=== PATIENT | female | born 1950 | race African-American/Black ===

== ENCOUNTER 2018-04-07 09:05 | Inpatient (IN) ==
--- NOTE | 2018-04-07 09:42 | ED ---
HPI General Chief complaint: Weakness Stated complaint: rt arm numbness Time Seen by Provider: 04/07/18 09:29 Source: patient Mode of arrival: ambulatory Limitations: no limitations History of Present Illness HPI Narrative: Patient is a 67-year-old female with history of neurofibromatosis , presents the emergency room with weakness. Patient reports that for the past 3 days, her right arm and her right leg feel numb has been feeling weak. Patient reports that she was concerned that she had a stroke 3 days ago and was afraid to come to the hospital. Patient denies history of CVA in the past. Patient reports that she came to the emergency room today as her symptoms have not improved or worsened, they are just not getting any better. Patient currently is not taking any anticoagulants. Patient denies any headache or dizziness, denies any nausea or vomiting. Patient with no chest pain or shortness of breath. Patient with no other complaints at this time. Patient is a smoker, she smokes 1 pack of cigarettes every 2-3 days. Related Data Home Medications Medication Instructions Recorded Confirmed amitriptyline 100 mg PO DAILY 04/07/18 04/07/18 Allergies Allergy/AdvReac Type Severity Reaction Status Date / Time Sulfa (Sulfonamide Allergy Severe Hives Verified 04/07/18 09:36 Antibiotics) Review of Systems ROS: all other systems reviewed are negative [facility] Medical History Medical History Neurofibromatosis (Acute) Social History Social History Substance History: No History of Abuse Smoking Status: Current every day smoker Tobacco Type: Cigarettes How Often Do You Have a Drink Containing Alcohol: Never Recent Travel in [facility] within the Last 8 Weeks: No Recent Out of Country Travel within the Last 8 Weeks: No Immunization History Tetanus Immunization: <5 Years Exam Narrative Exam Narrative: GENERAL: Mild distress SKIN: Focused skin assessment warm/dry. HEAD: Atraumatic. Normocephalic. EYES: Pupils equal and round. No scleral icterus. No injection or drainage. ENT: No nasal bleeding or discharge. Mucous membranes pink and moist. NECK: Trachea midline. No JVD. CARDIOVASCULAR: Regular rate and rhythm. No murmur appreciated. RESPIRATORY: No accessory muscle use. Clear to auscultation. Breath sounds equal bilaterally. GASTROINTESTINAL: Abdomen soft, non-tender, nondistended. Hepatic and splenic margins not palpable. MUSCULOSKELETAL: No obvious deformities. No clubbing. No cyanosis. No edema. NEUROLOGICAL: Awake and alert. No obvious cranial nerve deficits. Motor grossly within normal limits. Normal speech. CN 2-12 grossly intact, patient unable to perform finger to nose exam to RUE - motor strength 5/5 to b/l upper and lower extremities PSYCHIATRIC: Appropriate mood and affect; insight and judgment normal. Course Initial Documented Vital Signs Temperature 98.4 F 04/07/18 09:07 Pulse Rate 111 H 04/07/18 09:07 Respiratory Rate 24 04/07/18 09:07 Blood Pressure 134/101 H 04/07/18 09:07 Pulse Oximetry 95 04/07/18 09:07 Last Documented Vital Signs Temperature 98.4 F 04/07/18 09:07 Pulse Rate 99 H 04/07/18 09:32 Respiratory Rate 18 04/07/18 09:32 Blood Pressure 159/104 H 04/07/18 09:32 Pulse Oximetry 97 04/07/18 09:32 Medical Decision Making MDM Narrative Medical decision making narrative: During the course of the patients emergency department visit, the patients history, examination, and differential diagnosis were reviewed with the patient. The patient was placed on a pvc monitor with oximetry and frequent blood pressure monitoring. The patient had an IV access obtained and blood work sent for analysis. The patient was initially provided IVF. The patients laboratory studies were reviewed Radiology studies were reviewed and remarkable for: ct head with probable subacute infarct to the basal ganglia on the left side I have ordered an aspirin for patient - she will need to be admitted for MRI/ CVA workup Case reviewed with Dr. Russell who accepts pt to service for CVA workup Medical Screen Exam Complete: Yes Emergency Medical Condition: Yes Differential Diagnosis Differential Diagnosis: cva, tia, ich, electrolyte abnormality Medical Records Medical records reviewed: Yes I reviewed the patient's medical records. Lab Data Lab results reviewed: Yes I reviewed the patient's lab results. Result diagrams: 04/07/18 09:35 04/07/18 09:35 Lab Results 04/07/18 04/07/18 04/07/18 Range/Units 09:35 09:35 09:35 WBC 6.8 (4.0-11.0) th/mm3 RBC 5.16 (4.00-5.30) mil/mm3 Hgb 16.5 H (11.6-15.3) gm/dL Hct 49.9 H (35.0-46.0) % MCV 96.8 (80.0-100.0) fL MCH 31.9 (27.0-34.0) pg MCHC 33.0 (32.0-36.0) % RDW 13.8 (11.6-17.2) % Plt Count 232 (150-450) th/mm3 MPV 8.1 (7.0-11.0) fL Neut % (Auto) 72.1 H (16.0-70.0) % Lymph % (Auto) 19.0 (9.0-44.0) % [place] % (Auto) 6.8 (0.0-8.0) % Eos % (Auto) 0.9 (0.0-4.0) % Baso % (Auto) 1.2 (0.0-2.0) % Neut # (Auto) 4.9 (1.8-7.7) th/mm3 Lymph # (Auto) 1.3 (1.0-4.8) th/mm3 [place] # (Auto) 0.5 (0.0-0.9) th/mm3 Eos # (Auto) 0.1 (0.0-0.4) th/mm3 Baso # (Auto) 0.1 (0.0-0.2) th/mm3 WBC Differential . Differential Comment Auto diff final PT 10.0 (9.8-11.6) sec INR 1.0 Ratio APTT 29.8 (23.4-31.7) sec Sodium 137 (136-145) meq/L Potassium 4.4 (3.5-5.1) meq/L Chloride 98 (98-107) meq/L Carbon Dioxide 34.4 H (21.0-32.0) meq/L Anion Gap 5 (5-15) meq/L BUN 12 (7-18) mg/dL Creatinine 0.75 (0.50-1.00) mg/dL Estimated GFR 78 L (>89) mL/min Random Glucose 130 H (74-106) mg/dL Calcium 9.3 (8.5-10.1) mg/dL Total Bilirubin 0.5 (0.2-1.0) mg/dL AST 16 (15-37) U/L ALT 19 (10-53) U/L Alkaline Phosphatase 79 (45-117) U/L Total Creatine Kinase 58 (26-192) U/L Troponin I Less than 0.02 L (0.02-0.05) ng/mL Total Protein 7.6 (6.4-8.2) g/dL Albumin 4.1 (3.4-5.0) g/dL Imaging Data Attestation: I personally reviewed and interpreted this imaging study as follows : Radiologist's impression: Chest X-Ray 04/07/18 09:37 CONCLUSION: Minimal parental changes right base new from comparison study Head CT 04/07/18 09:37 CONCLUSION: 1. Probable subacute infarct basal ganglia left side 2. MRI suggested. 3. Findings were discussed with Dr. Sahni on today's date . ECG Data EKG Prior to Arrival: No Attestation: I personally reviewed and interpreted this ECG as follows: Interpretation: EKG at 1019: NSR at 95bpm, qt/qtc: 357/410, no acute st or t wave changes Discharge Plan Discharge Disposition Patient Disposition: 30 Still Patient Discharge Condition Condition: Stable Discharge Details Diagnosis: Acute CVA (cerebrovascular accident) Physicians Team ED Provider: Joanna Sahni Primary Care Provider: John Sahu Rxs /Orders / Referrals /Forms Prescriptions: No Action amitriptyline 100 mg Tablet 100 mg PO DAILY RF: 0 Status ED Status: With Doctor
[2018-04-07 09:55] LABS: Baso # (Auto) 0.1 th/mm3 (0.0-0.2); Baso % (Auto) 1.2 % (0.0-2.0); Eos # (Auto) 0.1 th/mm3 (0.0-0.4); Eos % (Auto) 0.9 % (0.0-4.0); Hematocrit 49.9 % (35.0-46.0); Hemoglobin 16.5 gm/dL (11.6-15.3); Lymph # (Auto) 1.3 th/mm3 (1.0-4.8); Mean Corpuscular Hemoglobin 31.9 pg (27.0-34.0); Mean Corpuscular Volume 96.8 fL (80.0-100.0); Mean Platelet Volume 8.1 fL (7.0-11.0); Mono # (Auto) 0.5 th/mm3 (0.0-0.9); Mono % (Auto) 6.8 % (0.0-8.0); Neut # (Auto) 4.9 th/mm3 (1.8-7.7); Neut % (Auto) 72.1 % (16.0-70.0); Platelet Count 232 th/mm3 (150-450); Red Blood Count 5.16 mil/mm3 (4.00-5.30); Red Cell Distribution Width 13.8 % (11.6-17.2); White Blood Count 6.8 th/mm3 (4.0-11.0)
[2018-04-07 10:02] LABS: Activated Partial Thrombo Time 29.8 sec (23.4-31.7)
[2018-04-07 10:12] LABS: Albumin 4.1 g/dL (3.4-5.0); Anion Gap 5 meq/L (5-15); Aspartate Aminotransferase 16 U/L (15-37); Calcium 9.3 mg/dL (8.5-10.1); Carbon Dioxide 34.4 meq/L (21.0-32.0); Chloride 98 meq/L (98-107); Glomerular Filtration Rate 78 mL/min (>89); Glucose,Random 130 mg/dL (74-106); Potassium 4.4 meq/L (3.5-5.1); Sodium 137 meq/L (136-145)
[2018-04-07 10:15] LABS: Alanine Aminotransferase 19 U/L (10-53); Alkaline Phosphatase 79 U/L (45-117); Blood Urea Nitrogen 12 mg/dL (7-18); Total Protein 7.6 g/dL (6.4-8.2)
--- NOTE | 2018-04-07 10:16 | XR ---
EXAM DATE: 04/07/2018 10:12 AM EST AGE/SEX: 67 years / Female INDICATIONS: Stroke symptoms, slurred speech, weakness. CLINICAL DATA: This is the patient's initial encounter. Patient reports that signs and symptoms have been present for 2 days and indicates a pain score of 0/10. MEDICAL/SURGICAL HISTORY: . Scoliosis None. COMPARISON: [facility], XR CHEST PA AND LAT, 06/05/2014. . FINDINGS: Marked thoracolumbar scoliosis. Cardiomegaly without overt failure. Minimal parenchymal changes right base new from comparison study. Scoliosis does severely compromise the right lung. CONCLUSION: Minimal parental changes right base new from comparison study Electronically signed by: Juan David Reyes MD 04/07/2018 10:14 AM EST
--- NOTE | 2018-04-07 10:20 | CT ---
EXAM DATE: 04/07/2018 10:15 AM EST AGE/SEX: 67 years / Female INDICATIONS: Weakness. CLINICAL DATA: This is the patient's initial encounter. Patient reports that signs and symptoms have been present for 1 day and indicates a pain score of 9/10. MEDICAL/SURGICAL HISTORY: . Neurofibromatosis. None. RADIATION DOSE: 50.17 CTDI (mGy) COMPARISON: No prior exams available for comparison. TECHNIQUE: CT of the head without contrast. Using automated exposure control and adjustment of the mA and/or kV according to patient size, radiation dose was kept as low as reasonably achievable to ob tain optimal diagnostic quality images. DICOM format image data is available electronically for revi ew and comparison. FINDINGS: Cerebrum: There is decreased density basal ganglia left side including external capsule. Subacute, 1 -3 day old evolving infarct is suspected. Right hemisphere unremarkable. There is no parenchymal hemo rrhage There are no extra-axial fluid collections appreciated. Posterior fossa appears normal. CONCLUSION: 1. Probable subacute infarct basal ganglia left side 2. MRI suggested. 3. Findings were discussed with Dr. Sahni on today's date . Electronically signed by: Juan David Reyes MD 04/07/2018 10:19 AM EST
[2018-04-07 10:21] LABS: Creatine Kinase 58 U/L (26-192)
[2018-04-07] MEDS ORDERED: Aspirin 325 MG Tablet PO ONE (10:21)
[2018-04-07] MEDS ORDERED: Dextrose 50% in Water 50 ML Vial IV.PUSH PRN (10:57)
--- NOTE | 2018-04-07 11:31 | ECG ---
Date Performed: 04/07/2018 Time Performed: 10:19:34 PTAGE: 67 years EKG: Sinus rhythm LEFT ATRIAL ENLARGEMENT LOW QRS VOLTAGE IN PRECORDIAL LEADS POSSIBLE ANTERIOR MYOCARDIAL INFARCTION INFERIOR MYOCARDIAL INFARCTION ABNORMAL ECG NO PREVIOUS TRACING DOCTOR: Jovany Wren Interpretating Date/Time 04/07/2018 11:29:53
[2018-04-07] MEDS: Enoxaparin Inj 40 MG/0.4 ML Syringe SQ SCH (12:31)
[2018-04-07] MEDS: Sod Chloride 0.9% Inj 1,000 ML IV.CONT SCH (12:31)
[2018-04-07 13:13] LABS: Bacteria,Urine Occasional /hpf; Bilirubin,Urine Negative (Negative); Clarity,Urine Hazy (Clear); Color,Urine Yellow (Yellw/Straw); Glucose,Urine (UA) Negative (Negative); Hyaline Casts,Urine 1 /lpf (0-3); Leukocyte Esterase,Urine Trace (Negative); Mucus,Urine Few /lpf (Occasional); Nitrite,Urine Negative (Negative); Specific Gravity,Urine 1.005 (1.002-1.035); Squamous Epithelial Cell,Urine 7 /hpf (0-5)
--- NOTE | 2018-04-07 14:38 | MB ---
cc: Romero Son MD, PhD DATE: 04/07/2018 REASON FOR CONSULTATION: Stroke. HISTORY OF PRESENT ILLNESS: Ms. Justin is a 67-year-old female who has a history of neurofibromatosis who on Thursday developed acute onset of right-sided weakness involving the right arm and right leg with no speech involvement. The symptoms have persisted with no change. PAST MEDICAL HISTORY: She has a history of neurofibromatosis. MEDICATIONS AT HOME: She was on Elavil for neuropathic pain. She currently is on aspirin 325 mg daily but states she was not on that prior. She is on Pravachol 40 mg daily. NEUROLOGICAL EXAMINATION: VITAL SIGNS: Blood pressure is 169/102, pulse 97, respirations 19, temperature 97 degrees. NEUROLOGIC: High cortical functions normal. Cranial nerves are intact. On motor exam, she has mild weakness in the right arm and the right leg rated at 4/5 with normal strength on the left. She has diminished fine motor skills in the right hand. She has a mild pronator drift. Right upper extremity reflexes are symmetric. Sensory exam is intact. DIAGNOSTIC DATA: CT scan of the brain, probable subacute infarction in the left basal ganglia. Recommend MRI. EKG: Left atrial enlargement, sinus rhythm. LABORATORY DATA: White count 6800, hemoglobin 16.5, hematocrit 49.9%, platelets 232,000. PT is 10, INR 1, aPTT 29.8. Sodium is 137, potassium 4.4, chloride 98, CO2 of 34.4, BUN is 12, creatinine 0.75, GFR 78, glucose is 130, AST 16, ALT 19. IMPRESSION: Left hemisphere stroke in the basal ganglia. She does have an elevated hematocrit as well. RECOMMENDATION: Continue aspirin. We will obtain hematology consult regarding her elevated hemoglobin. Also recommend further evaluation with an MRI/MRA of the brain, carotid ultrasound, echocardiogram, lipid panel. Monitor cardiac telemetry, rule out atrial fibrillation. Also, consult rehabilitation medicine. Romero Son MD, PhD YELENA/tata , 02:02 PM , 02:07 PM
[2018-04-07] MEDS: Insulin NovoLOG Aspart Correctional Sugar Inj SQ SCH ×3 (15:29→23:55)
[2018-04-07 16:19] LABS: Chol/HDL Ratio 3.17 Ratio; HDL Cholesterol 67.4 mg/dL (40.0-60.0)
--- NOTE | 2018-04-07 16:47 | OTSOAPIP ---
TIME SESSION COMPLETED: 1540 TREATMENT TIME: 0 MINS. CHART REVIEWED. PATIENT WAS NOT AVAILABLE DUE TO HAVING A MRI PROCEDURE PLAN: WILL SEE NEXT TREATMENT DAY Therapist: Partah Sol Signature on file
--- NOTE | 2018-04-07 17:12 | MR ---
EXAM DATE: 04/07/2018 4:54 PM EST AGE/SEX: 67 years / Female INDICATIONS: CVA. Weakness right side. CLINICAL DATA: This is the patient's initial encounter. Patient reports that signs and symptoms have been present for 1 day and indicates a pain score of 0/10. MEDICAL/SURGICAL HISTORY: . Neurofibromatosis. . Tumors removed from spine 30 years ago. COMPARISON: [facility] [place], MRA HEAD W/O CONTRAST, 04/07/2018. . TECHNIQUE: Multiplanar, multisequence examination of the brain was performed without contrast. FINDINGS: There is an acute infarct in the left basal ganglia measuring up to 11 mm in diameter with an additio nal subcentimeter infarct in the left posterior periventricular white matter. There is no mass effect or midline shift. No hydrocephalus. Mild ischemic changes in the periventricular white matter. No sellar mass. CONCLUSION: 1. Acute small infarct in the left basal ganglia and left posterior periventricular white matter. No mass effect or shift. No hemorrhage. Mild white matter ischemic changes. Electronically signed by: Isaiah Tobias MD 04/07/2018 5:10 PM EST
--- NOTE | 2018-04-07 17:15 | MR ---
EXAM DATE: 04/07/2018 5:00 PM EST AGE/SEX: 67 years / Female INDICATIONS: CVA. Right sided weakness. CLINICAL DATA: This is the patient's initial encounter. Patient reports that signs and symptoms have been present for 2 days and indicates a pain score of 0/10. MEDICAL/SURGICAL HISTORY: . Neurofibromatosis. . Tumors removed from spine 30 years ago. COMPARISON: [facility] [place], [place] HEAD W/O CONTRAST, 04/07/2018. . TECHNIQUE: 3D [id number] MRA was performed. Source images, multiplanar STS MIP, and 3D volum e MIP reconstructions were reviewed. FINDINGS: There is excellent visualization of the major intracranial arteries out to the second-order branch ve ssels. There is no evidence for aneurysm, vessel truncation or stenosis, and no evidence for vascula r malformation. CONCLUSION: 1. Negative MRA Cow ([place]) non contrast. Electronically signed by: Isaiah Tobias MD 04/07/2018 5:14 PM EST
--- NOTE | 2018-04-07 17:24 | P.HPIM ---
History of Present Illness Primary Care Physician: John Sahu History of Present Illness: 67-year-old white female with a history of neurofibromatosis presents to the emergency room due to persistent right arm and leg numbness along with right hand legal aid weakness for the past 3 days as it has not improved. Patient states that she was at [facility] about 3 days ago and noted suddenly her right lower leg gave out on her she was able to recover and ambulate back home which then she noted that her legal aid strength and was diminished and was unable to hold a pen. She denies any headaches nor any visual changes nor any difficulty with swallowing. She was still able to ambulate independently however feels a heaviness in the right lower leg to the past 3 days. Based on the fact that the symptoms did not improve she came to emergency room today for evaluation. She denies a history of hypertension or diabetes. She has not had any associated chest pain, shortness of breath nor any nausea or vomiting. Diagnosis (1) Acute CVA (cerebrovascular accident): Inpatient Certification Inpatient Certification: I certify that the inpatient services were ordered in accordance with Medicare regulations governing the order. This includes certification that hospital inpatient services are reasonable and necessary and in the case of services not specified as inpatient-only under 42 CFR 419.22(n), that they are appropriately provided as inpatient services in accordance to with the 2-midnight benchmark under 43 CFR 412.3(e) Estimated Total Length of Stay (Days): 3 Plans for Post Hospital Care: Home [facility] Medical History Medical History Neurofibromatosis (Acute) Family History Family History Mother No problems noted. Father No problems noted. Other Lung cancer Social History Social History Substance History: No History of Abuse Smoking Status: Current every day smoker Tobacco Type: Cigarettes Packs Per Day: 0.5 Cigarettes Per Day: 10.0 How Often Do You Have a Drink Containing Alcohol: Never Recent Travel in [facility] within the Last 8 Weeks: No Recent Out of Country Travel within the Last 8 Weeks: No Immunization History Tetanus Immunization: <5 Years Hx Influenza Vaccine This Season: No Medications and Allergies Allergies Allergy/AdvReac Type Severity Reaction Status Date / Time Sulfa (Sulfonamide Allergy Severe Hives Verified 04/07/18 09:36 Antibiotics) Home Medications Medication Instructions Recorded Confirmed Type amitriptyline 100 mg PO DAILY 04/07/18 04/07/18 History Active Medications: Active Medications Aspirin (Aspirin) 325 mg PO DAILY FOR[facility]LY [facility], [facility]1983 Dextrose (D50w Vial) 50 ml IV.PUSH UNSCH PRN PRN Reason: PER HYPOGLYCEMIA PROTOCOL Enoxaparin Sodium (Lovenox Inj) 40 mg SQ Q24H FOR[facility], [facility]1983 Last Admin: 04/07/18 12:31 Dose: 40 mg Glucagon (Glucagon Inj) 1 mg OTHER UNSCH PRN PRN Reason: for Hypoglycemia Protocol Sodium Chloride (Ns Inj) 1,000 mls @ 70 mls/hr IV.CONT .[id number] FOR[facility]LY [facility], 1928–1983 Last Admin: 04/07/18 12:31 Dose: 70 mls/hr Insulin Aspart (Novolog Insulin Correctional Sugar Inj) 0 unit SQ ACHS FOR[facility]LY [facility], [facility]1983; Protocol Last Admin: 04/07/18 15:29 Dose: Not Given Pravastatin Sodium (Pravachol) 40 mg PO HS [facility], [facility]1983 Sodium Chloride (Ns Flush) 2 ml IV.FLUSH PRN PRN PRN Reason: FLUSH AFTER USING IV ACCESS Sodium Chloride (Ns Flush) 2 ml IV.FLUSH BID KVNG Sodium Chloride (Ns Flush) 2 ml IV.FLUSH PRN PRN PRN Reason: FLUSH AFTER USING IV ACCESS Physical Exam Vital signs: Last Vital Signs Temp 98.3 F 04/07/18 16:00 Pulse 97 H 04/07/18 16:00 Resp 18 04/07/18 16:00 BP 172/103 H 04/07/18 16:00 Pulse Ox 97 04/07/18 16:00 Intake & Output 04/05/18 04/06/18 04/07/18 04/08/18 06:59 06:59 06:59 06:59 Weight 38.555 kg Narrative: GENERAL: Thin white female in no acute distress SKIN: Warm and dry. Multiple elevated papules from neurofibromatosis bilateral arm trunk chest and upper lower extremities HEAD: Atraumatic. Normocephalic. EYES: Pupils equal and round. No scleral icterus. No injection or drainage. ENT: No nasal bleeding or discharge. Mucous membranes pink and moist. NECK: Trachea midline. No JVD. CARDIOVASCULAR: Regular rate and rhythm. Chest showed indented cisterna which is chronic RESPIRATORY: No accessory muscle use. Clear to auscultation. Breath sounds equal bilaterally. GASTROINTESTINAL: Abdomen soft, non-tender, nondistended. Hepatic and splenic margins not palpable. Normoactive bowel sounds MUSCULOSKELETAL: Extremities without clubbing, cyanosis, or edema. NEUROLOGICAL: Awake and alert. No obvious cranial nerve deficits. Motor grossly within normal limits. Five out of 5 muscle strength left upper and lower extremities slight diminished legal aid strength in the right upper hand, 4.5 out of 5 motor strength right lower extremity. Normal speech. PSYCHIATRIC: Appropriate mood and affect; insight and judgment normal. Assessment and Plan (1) Acute CVA (cerebrovascular accident): Code(s): I63.9 - Cerebral infarction, unspecified Status: Acute Plan 67-year-old white female presents to the emergency room with right sided numbness and weakness Subacute CVAaspirin initiated, will consult OT PT Neurology consultation for further recommendations. MRI of the brain, 2D echo , carotid ultrasound for further workup check fasting lipid profile and hemoglobin A1c. Elevated blood pressure - patient likely has underlying hypertension, start antihypertensives in the morning as we will continue permissive elevation during next 24 hours due to stroke. DVT prophylaxisLovenox
--- NOTE | 2018-04-07 18:02 | MR ---
EXAM DATE: 04/07/2018 5:42 PM EST AGE/SEX: 67 years / Female INDICATIONS: Stroke. Right sided weakness. CLINICAL DATA: This is the patient's initial encounter. Patient reports that signs and symptoms have been present for 1 day and indicates a pain score of 0/10. MEDICAL/SURGICAL HISTORY: . Neurofibromatosis. . Tumors removed from spine 30 years ago. COMPARISON: No prior exams available for comparison. TECHNIQUE: 10 ml Gadavist (gadobutrol) contrast infused MRA (single exam dose) of the extracranial circulation was performed using a neurovascular coil. Postprocessing was performed, including rotati ng sub-volume maximum intensity projections of each carotid artery, rotating full-volume maximum inte nsity projections of both carotid arteries, sagittal and coronal sliding thin-slab reformations of ea ch carotid artery, and left oblique sliding thin-slab reformation through the aortic arch to include the origin of the arch branch vessels. FINDINGS: Aortic Arch : There is a three-vessel origin of the great vessels from the aorta. No evidence of o stial narrowing. Right Carotid : The common carotid artery is intact. The carotid bulb has a normal configuration wi thout ulceration or narrowing. The internal carotid artery lumen is smooth without stenosis. The ex ternal carotid artery is intact. Left Carotid : The common carotid artery is intact. The carotid bulb has a normal configuration wit hout ulceration or narrowing. The internal carotid artery lumen is smooth without stenosis. The ext ernal carotid artery is intact. Vertebrals : The vertebral arteries have a symmetric diameter. No stenotic lesions are seen. CONCLUSION: 1. No hemodynamically significant stenosis identified on MRA of the neck. Percent stenosis is calculated using the diameter of the stenotic region over the diameter of the nor mal distal internal carotid artery Electronically signed by: Isaiah Tobias MD 04/07/2018 6:01 PM EST
[2018-04-07] MEDS ORDERED: Gadobutrol PF 10 MMOL/10 ML Vial (for RAD) IV.SIG ONE (18:03)
--- NOTE | 2018-04-07 18:03 | ECHRPT ---
Indication: CVA/TIA CONCLUSIONS Very technically difficult study. The left ventricular systolic function is grossly normal on limited imaging. Mild concentric left ventricular hypertrophy. BP: / HR: Rhythm: MEASUREMENTS (Male / Female) Normal Values Technical Quality:Very technically difficult study 2D ECHO LV Diastolic Diameter PLAX 2.8 cm 4.2 - 5.9 / 3.9 - 5.3 cm LV Systolic Diameter PLAX 2.0 cm IVS Diastolic Thickness 1.0 cm 0.6 - 1.0 / 0.6 - 0.9 cm LVPW Diastolic Thickness 1.0 cm 0.6 - 1.0 / 0.6 - 0.9 cm LV Relative Wall Thickness 0.7 RV Internal Dim ED PLAX 2.0 cm LVOT Diameter 1.8 cm Aortic Root Diameter 2.9 cm LA Systolic Diameter LX 3.2 cm 3.0 - 4.0 / 2.7 - 3.8 cm DOPPLER PV Peak Velocity 97.7 cm/s PV Peak Gradient 3.8 mmHg FINDINGS LEFT VENTRICLE Normal left ventricular size. Mild concentric left ventricular hypertrophy. The left ventricular systolic function is grossly normal on limited imaging. There was limited left ventricular wall motion assessment due to poor endocardial visualization. RIGHT VENTRICLE The right ventricle was not well visualized. LEFT ATRIUM The left atrial size is normal. RIGHT ATRIUM The right atrium is not well visualized. ATRIAL SEPTUM Normal atrial septal thickness. AORTA The aortic root and proximal ascending aorta are normal in size on limited imaging. MITRAL VALVE Structurally normal mitral valve. No mitral valve stenosis or regurgitation. AORTIC VALVE Trileaflet aortic valve. No aortic valve stenosis or regurgitation. TRICUSPID VALVE The tricuspid valve is not well visualized. PULMONARY VALVE The pulmonary valve is not well visualized. VESSELS The inferior vena cava is normal in size. PERICARDIUM There is a trace pericardial effusion present. Luther Jarquin DO (Electronically Signed) Final Date:07 April 2018 18:02
--- NOTE | 2018-04-07 19:31 | MB ---
cc: Sidney Henry MD DATE: 04/07/2018 REQUESTING PHYSICIAN: Romero Son MD REASON FOR CONSULTATION: High hemoglobin. A 67-year-old lady with history of neurofibromatosis, is admitted with new onset right-sided weakness. She was found to have CVA and started on aspirin and routine evaluation showed her hemoglobin and hematocrit to be mildly elevated to 16.5 and 49.9 respectively. Hence hematology consultation requested. The patient is asymptomatic now, has recovered from the stroke and does not have any new complaints. She is unaware of any history of polycythemia in the past and has not seen a resources representative and never had a bone marrow biopsy. She also did not have routine annual followups with her primary physician, and hence it is unclear when her last CBC was. REVIEW OF SYSTEMS: Denies any headaches, motor or sensory symptoms. No neck pain or stiffness or photophobia. No cough, chest pain or shortness of breath. No abdominal pain, distention, nausea or vomiting. No fevers, night sweats, or recent weight loss. PAST MEDICAL HISTORY: She had a neurofibromatosis and multiple joint and skeletal deformities. No known history of high blood pressure, heart, lung or kidney disease. FAMILY HISTORY: Significant for mother and father and a brother dying of lung cancer. They were all smokers. SOCIAL HISTORY: The patient smoked half pack a day for about 30 years and did not abuse alcohol. 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 CURRENT MEDICATIONS: Include: 1. Aspirin 325 mg daily. 2. Lovenox 40 mg subcutaneous every 24 hours. PHYSICAL EXAMINATION: GENERAL: Middle-aged lady, appearing much older and chronically ill looking, cachectic looking, but not in apparent distress. SKIN: With multiple neurofibromatosis. No pallor. Mild plethora. No icterus. No cyanosis. No clubbing. NECK: No lymphadenopathy in the neck or axilla or groins. HEENT: Without oropharyngeal lesions, no gum bleeding or hypertrophy. Alert and oriented x4, nonfocal. No JVD. CARDIOVASCULAR: S1, S2, regular rate and rhythm. LUNGS: Bilaterally clear without crackles or wheeze. ABDOMEN: Scaphoid, soft with no splenomegaly, No hepatomegaly, no masses or tenderness. No free fluid clinically. EXTREMITIES: No edema or evidence of DVTs. Pectus excavatum deformity noted. LABORATORY DATA: White count 6.8, hemoglobin is 16.5, hematocrit 49.9, MCV 96.8, platelets 232. Chemistry significant for BUN of 12, creatinine 0.75, GFR 78 and cholesterol 214, LDL 124, HDL 67, glucose 130. Liver enzymes normal. Calcium 9.3. Head CT was negative. MRA of the head was negative. MRI of the neck showed acute small infarct in the left basal ganglia and left periventricular white matter. No mass effect, shift or hemorrhage. Neck MRA showed no hemodynamically significant stenosis. IMPRESSION: A 67-year-old lady with a history of smoking, found to have a mild elevation of hemoglobin and hematocrit and a new onset cerebrovascular accident, currently on aspirin and neurology consultation ongoing. 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 She does not have any evidence of myeloproliferative disorder at this time. We will check her JAK2 mutation testing as well as MPL and check her erythropoietin levels. If there is elevation of erythropoietin, she will be checked for EPO producing tumor such as renal cell carcinoma, etc. Currently, there is no evidence of malignancy. I agree with her being on aspirin. If she appears to have a primary hematologic disorder on the basis of the above evaluation, I will order a bone marrow biopsy and we will consider hydroxyurea or Jakafi at that time. As far as her phlebotomy is concerned, we will currently hold it off as hematocrit is less than 50% and because it appears to be a secondary polycythemia. We will check her CBC in a.m. and follow her up. If she does have primary polycythemia, we will started her on phlebotomy also. All of these issues were the patient and her friend who is at the bedside. Sidney Henry MD MVA/ct , 06:38 PM , 06:49 PM
[2018-04-07] MEDS ORDERED: Acetaminophen 325 MG Tablet PO PRN (23:41)
[2018-04-08] MEDS: Sod Chloride 0.9% Inj 1,000 ML IV.CONT SCH ×2 (03:50→15:21)
[2018-04-08 06:12] LABS: Baso # (Auto) 0.1 th/mm3 (0.0-0.2); Baso % (Auto) 1.4 % (0.0-2.0); Eos # (Auto) 0.1 th/mm3 (0.0-0.4); Eos % (Auto) 1.2 % (0.0-4.0); Hematocrit 47.1 % (35.0-46.0); Hemoglobin 15.6 gm/dL (11.6-15.3); Lymph # (Auto) 1.5 th/mm3 (1.0-4.8); Lymph % (Auto) 26.8 % (9.0-44.0); Mean Corpuscular HGB Conc 33.1 % (32.0-36.0); Mean Corpuscular Hemoglobin 31.9 pg (27.0-34.0); Mean Corpuscular Volume 96.5 fL (80.0-100.0); Mean Platelet Volume 8.3 fL (7.0-11.0); Mono # (Auto) 0.5 th/mm3 (0.0-0.9); Mono % (Auto) 8.4 % (0.0-8.0); Neut # (Auto) 3.4 th/mm3 (1.8-7.7); Neut % (Auto) 62.2 % (16.0-70.0); Platelet Count 201 th/mm3 (150-450); Red Blood Count 4.88 mil/mm3 (4.00-5.30); Red Cell Distribution Width 13.5 % (11.6-17.2); White Blood Count 5.4 th/mm3 (4.0-11.0)
[2018-04-08 06:38] LABS: Chol/HDL Ratio 3.35 Ratio
[2018-04-08] MEDS: Insulin NovoLOG Aspart Correctional Sugar Inj SQ SCH ×4 (08:20→20:35)
[2018-04-08] MEDS: Aspirin 325 MG Tablet PO SCH (08:22)
--- NOTE | 2018-04-08 10:30 | P.CONREH ---
History of Present Illness Service: Physical medicine and rehabilitation Consult date: 04/08/18 Reason for Consult: Comprehensive rehabilitation evaluation Primary Care Provider: John Sahu History of Present Illness: Mehnaz Justin is a 67-year-old [id number] female admitted to [facility] 04/07/18 with right arm and leg numbness and decreased right pig sticker strength for approximately 3 days. Brain MRI 04/07/18 showed: Acute small infarct in left basal ganglia and left posterior periventricular white matter with no mass-effect or shift and no hemorrhage. Mild white matter ischemic changes noted. Neck MRA showed no hemodynamically significant stenosis. Patient was evaluated by neurology. Patient was to continue on aspirin and hematology was consulted regarding elevated hemoglobin. Patient was placed on cardiac telemetry to rule out atrial fibrillation. Review of Systems Constitutional: Denies headache(s) Eyes: Denies blurry vision, Denies double vision Ears, Nose, Mouth, and Throat: Denies abnormal hearing, Denies difficulty swallowing Cardiovascular: Denies chest pain Respiratory: Reports shortness of breath with activity, Denies shortness of breath Gastrointestinal: Denies abdominal pain, Denies nausea Genitourinary: Denies urinary incontinence Musculoskeletal: Reports muscle weakness (Right UE and LE) Skin/Breast: Denies itching, Denies rash Neurologic: Denies confusion Psychiatric: Denies confusion Hematologic/Lymphatic: Denies easy bruising Allergic/Immunologic: Denies throat swelling PMFSH - History History Provided By: Patient - Medical History Medical History: Medical History (Last Reviewed 04/08/18 @ 14:50 by Vilma Padron) Neurofibromatosis - Family History Family History: Family History (Last Reviewed 04/08/18 @ 12:38 by Laura Crouch) Mother No problems noted. Father No problems noted. Other Lung cancer - Tobacco History Tobacco Use In Past 30 Days: Yes Smoking Status: Current every day smoker Tobacco Type: Cigarettes Packs Per Day: 0.5 Cigarettes Per Day: 10.0 - Alcohol History How Often Do You Have a Drink Containing Alcohol: Never - Substance Use History Substance History: No History of Abuse - Travel History Recent Travel in the [facility] Within the Last 8 Weeks: No Recent Travel Out of the Country Within the Last 8 Weeks: No - Immunization History Tetanus Immunization: <5 Years Hx Influenza Vaccine This Season: No Medications and Allergies Active Medications: Active Medications Acetaminophen (Tylenol) 650 mg PO Q4H PRN PRN Reason: ARIZMENDI/fever > 100.4 Last Admin: 04/08/18 00:07 Dose: 650 mg Aspirin (Aspirin) 325 mg PO DAILY [facility] Last Admin: 04/08/18 08:22 Dose: 325 mg Dextrose (D50w Vial) 50 ml IV.PUSH UNSCH PRN PRN Reason: PER HYPOGLYCEMIA PROTOCOL Enoxaparin Sodium (Lovenox Inj) 40 mg SQ Q24H [facility] Last Admin: 04/07/18 12:31 Dose: 40 mg Glucagon (Glucagon Inj) 1 mg OTHER UNSCH PRN PRN Reason: for Hypoglycemia Protocol Sodium Chloride (Ns Inj) 1,000 mls @ 70 mls/hr IV.CONT .[id number] [facility] Last Admin: 04/08/18 03:50 Dose: 70 mls/hr Insulin Aspart (Novolog Insulin Correctional Sugar Inj) 0 unit SQ ACHS [facility]; Protocol Last Admin: 04/08/18 08:20 Dose: Not Given Pravastatin Sodium (Pravachol) 40 mg PO HS [facility] Last Admin: 04/07/18 23:00 Dose: 40 mg Sodium Chloride (Ns Flush) 2 ml IV.FLUSH PRN PRN PRN Reason: FLUSH AFTER USING IV ACCESS Sodium Chloride (Ns Flush) 2 ml IV.FLUSH BID [facility] Last Admin: 04/08/18 08:22 Dose: Not Given Sodium Chloride (Ns Flush) 2 ml IV.FLUSH PRN PRN PRN Reason: FLUSH AFTER USING IV ACCESS Allergies Allergy/AdvReac Type Severity Reaction Status Date / Time Sulfa (Sulfonamide Allergy Severe Hives Verified 04/07/18 09:36 Antibiotics) Home Medications Medication Instructions Recorded Confirmed Type amitriptyline 100 mg PO DAILY 04/07/18 04/07/18 History Exam - Physical Examination Vital Signs / I&O: Vital Signs 04/07/18 12:52 04/07/18 13:12 04/07/18 16:00 Temperature 97.8 F 98.3 F Pulse Rate 96 H 97 H 97 H Respiratory Rate 14 19 18 Blood Pressure 176/106 H 169/102 H 172/103 H Pulse Oximetry 96 95 97 04/07/18 20:00 04/08/18 00:00 04/08/18 04:00 Temperature 97.7 F 98.2 F 97.8 F Pulse Rate 100 H 93 H 97 H Respiratory Rate 17 17 17 Blood Pressure 135/72 161/98 H 145/92 H Pulse Oximetry 94 L 94 L 94 L 04/08/18 07:19 Temperature 97.7 F Pulse Rate 97 H Respiratory Rate 16 Blood Pressure 153/95 H Pulse Oximetry 91 L Intake & Output 04/07/18 04/08/18 04/08/18 18:59 06:59 18:59 Intake Total 720 / 720 1480 / 1480 Balance 720 / 720 1480 / 1480 Weight 38.555 kg Intake: IV 1000 / 1000 NS Inj 1,000 ML @ 70 mls/hr IV. 1000 / 1000 CONT .[id number] Rx#:[id number] Oral 720 / 720 480 / 480 Other: # Voids 2 Date of Last Bowel Movement 04/07/18 04/07/18 Intake & Output 04/06/18 04/07/18 04/08/18 04/09/18 06:59 06:59 06:59 06:59 Intake Total 2200 / 2200 Balance 2200 / 2200 Weight 38.555 kg General: No acute distress Respiratory: Lungs CTA, Non-labored respirations, BS equal, Coarse breath sounds Gastrointestinal: Positive bowel sounds, Non-distended, Non-tender Date of Last Bowel Movement: 04/07/18 Cardiovascular: Normal rate, No edema, Regular rhythm Skin: No rash Musculoskeletal: Swelling (None in distal LE) Psychiatric: Cooperative, Appropriate mood & affect - Neurologic Orientation: oriented to: Self, Place, Situation Neurologic: Cranial nerves (Intact 2-12), Speech (Clear), Neglect (None noted) Motor: Right Upper Extremity (4+/5), Left Upper Extremity (5/5), Right Lower Extremity (4+/5), Left Lower Extremity (5/5) Spasticity: None noted Sensory: Intact to light touch in UE and LE and symmetric DTRs: Normal Babinski: Negative Clonus: Negative Results - Labs CBC & Chem 7: 04/08/18 05:32 04/07/18 09:35 Labs: Laboratory Results - last 24 hr 04/07/18 04/07/18 04/07/18 09:35 12:45 17:55 WBC RBC Hgb Hct MCV MCH MCHC RDW Plt Count MPV Neut % (Auto) Lymph % (Auto) [place] % (Auto) Eos % (Auto) Baso % (Auto) Neut # (Auto) Lymph # (Auto) [place] # (Auto) Eos # (Auto) Baso # (Auto) WBC Differential Differential Comment POC Glucose 79 Triglycerides 112 Cholesterol 214 H LDL Cholesterol, Calc 124 H HDL Cholesterol 67.4 H Cholesterol/HDL Ratio 3.17 Urine Color Yellow Urine Clarity Hazy H Urine pH 7.0 Ur Specific [place] 1.005 Urine Protein Negative Urine Glucose (UA) Negative Urine Ketones Negative Urine Occult Blood Negative Urine Nitrate Negative Urine Bilirubin Negative Urine Urobilinogen Less than 2 Ur Leukocyte Esterase Trace H Urine RBC 1 Urine WBC 1 Ur Squamous Epith Cells 7 Urine Bacteria Occasional H Hyaline Casts 1 Urine Mucus Few H Micro UA Comment Culture not ind Ur Microscopic Review Not Reportable Urine Culture Comments Culture not ind 04/07/18 04/08/18 04/08/18 23:02 05:32 05:32 WBC 5.4 RBC 4.88 Hgb 15.6 H Hct 47.1 H MCV 96.5 MCH 31.9 MCHC 33.1 RDW 13.5 Plt Count 201 MPV 8.3 Neut % (Auto) 62.2 Lymph % (Auto) 26.8 [place] % (Auto) 8.4 H Eos % (Auto) 1.2 Baso % (Auto) 1.4 Neut # (Auto) 3.4 Lymph # (Auto) 1.5 [place] # (Auto) 0.5 Eos # (Auto) 0.1 Baso # (Auto) 0.1 WBC Differential . Differential Comment Auto diff final POC Glucose 76 Triglycerides 113 Cholesterol 191 LDL Cholesterol, Calc 111 H HDL Cholesterol 57.0 Cholesterol/HDL Ratio 3.35 Urine Color Urine Clarity Urine pH Ur Specific [place] Urine Protein Urine Glucose (UA) Urine Ketones Urine Occult Blood Urine Nitrate Urine Bilirubin Urine Urobilinogen Ur Leukocyte Esterase Urine RBC Urine WBC Ur Squamous Epith Cells Urine Bacteria Hyaline Casts Urine Mucus Micro UA Comment Ur Microscopic Review Urine Culture Comments 04/08/18 07:24 WBC RBC Hgb Hct MCV MCH MCHC RDW Plt Count MPV Neut % (Auto) Lymph % (Auto) [place] % (Auto) Eos % (Auto) Baso % (Auto) Neut # (Auto) Lymph # (Auto) [place] # (Auto) Eos # (Auto) Baso # (Auto) WBC Differential Differential Comment POC Glucose 93 Triglycerides Cholesterol LDL Cholesterol, Calc HDL Cholesterol Cholesterol/HDL Ratio Urine Color Urine Clarity Urine pH Ur Specific [place] Urine Protein Urine Glucose (UA) Urine Ketones Urine Occult Blood Urine Nitrate Urine Bilirubin Urine Urobilinogen Ur Leukocyte Esterase Urine RBC Urine WBC Ur Squamous Epith Cells Urine Bacteria Hyaline Casts Urine Mucus Micro UA Comment Ur Microscopic Review Urine Culture Comments - Imaging Impressions Head MRA 04/07/18 00:00 CONCLUSION: 1. Negative MRA [place] ([place]) non contrast. Head MRI 04/07/18 10:59 CONCLUSION: 1. Acute small infarct in the left basal ganglia and left posterior periventricular white matter. No mass effect or shift. No hemorrhage. Mild white matter ischemic changes. Neck MRA 04/07/18 10:59 CONCLUSION: 1. No hemodynamically significant stenosis identified on MRA of the neck. Percent stenosis is calculated using the diameter of the stenotic region over the diameter of the normal distal internal carotid artery Assessment and Plan - Plan Assessment: 1. Left Basal Ganglia infarct with mild right hemiparesis and decreased coordination Recommendations: 1. PT mobilizing and independent with transfers and gait 100 feet. Continue to mobilize addressing balance 2. OT evaluating for right UE strengthening and coordination and ADL training 3. Encouraged tobacco cessation 4. Case management for discharge planning. Patient stated that she lives alone and likely will need home health services 5. Will follow while hospitalized and at discharge Thank you for this consult.
[2018-04-08] MEDS: Enoxaparin Inj 40 MG/0.4 ML Syringe SQ SCH (11:16)
--- NOTE | 2018-04-08 14:03 | P.PN ---
Subjective Interval history: feels great no complains of headache, nausea or vomiting preented with right seided weakness started - Thursday but did not come to ER till yesterday clinically feels stronger baseline is independent did very well with PT today Physical Exam Vital signs: Vital Signs 04/07/18 16:00 04/07/18 20:00 04/08/18 00:00 Temperature 98.3 F 97.7 F 98.2 F Pulse Rate 97 H 100 H 93 H Respiratory Rate 18 17 17 Blood Pressure 172/103 H 135/72 161/98 H Pulse Oximetry 97 94 L 94 L 04/08/18 04:00 04/08/18 07:19 04/08/18 11:16 Temperature 97.8 F 97.7 F 97.9 F Pulse Rate 97 H 97 H 90 Respiratory Rate 17 16 16 Blood Pressure 145/92 H 153/95 H 149/81 H Pulse Oximetry 94 L 91 L Intake & Output 04/07/18 04/08/18 04/08/18 18:59 06:59 18:59 Intake Total 720 / 720 1480 / 1480 Balance 720 / 720 1480 / 1480 Weight 38.555 kg Intake: IV 1000 / 1000 NS Inj 1,000 ML @ 70 mls/hr IV. 1000 / 1000 CONT .[id number] Rx#:[id number] Oral 720 / 720 480 / 480 Other: # Voids 2 Date of Last Bowel Movement 04/07/18 04/07/18 Narrative: GENERAL: Thin white female in no acute distress SKIN: Warm and dry. Multiple elevated papules from neurofibromatosis bilateral arm trunk chest and upper lower extremities HEAD: Atraumatic. Normocephalic. EYES: Pupils equal and round. No scleral icterus. No injection or drainage. ENT: No nasal bleeding or discharge. Mucous membranes pink and moist. NECK: Trachea midline. No JVD. CARDIOVASCULAR: Regular rate and rhythm. RESPIRATORY: No accessory muscle use. Clear to auscultation. Breath sounds equal bilaterally. GASTROINTESTINAL: Abdomen soft, non-tender, nondistended. Hepatic and splenic margins not palpable. Normoactive bowel sounds MUSCULOSKELETAL: Extremities without clubbing, cyanosis, or edema. NEUROLOGICAL: Awake and alert. No obvious cranial nerve deficits. Motor grossly within normal limits. Five out of 5 muscle strength left \ PSYCHIATRIC: Appropriate mood and affect; insight and judgment normal. very interactive Results - Labs CBC & Chem 7: 04/08/18 05:32 04/07/18 09:35 Laboratory Results - last 24 hr 04/07/18 04/07/18 04/07/18 09:35 17:55 23:02 WBC RBC Hgb Hct MCV MCH MCHC RDW Plt Count MPV Neut % (Auto) Lymph % (Auto) [place] % (Auto) Eos % (Auto) Baso % (Auto) Neut # (Auto) Lymph # (Auto) [place] # (Auto) Eos # (Auto) Baso # (Auto) WBC Differential Differential Comment POC Glucose 79 76 Triglycerides 112 Cholesterol 214 H LDL Cholesterol, Calc 124 H HDL Cholesterol 67.4 H Cholesterol/HDL Ratio 3.17 04/08/18 04/08/18 04/08/18 05:32 05:32 07:24 WBC 5.4 RBC 4.88 Hgb 15.6 H Hct 47.1 H MCV 96.5 MCH 31.9 MCHC 33.1 RDW 13.5 Plt Count 201 MPV 8.3 Neut % (Auto) 62.2 Lymph % (Auto) 26.8 [place] % (Auto) 8.4 H Eos % (Auto) 1.2 Baso % (Auto) 1.4 Neut # (Auto) 3.4 Lymph # (Auto) 1.5 [place] # (Auto) 0.5 Eos # (Auto) 0.1 Baso # (Auto) 0.1 WBC Differential . Differential Comment Auto diff final POC Glucose 93 Triglycerides 113 Cholesterol 191 LDL Cholesterol, Calc 111 H HDL Cholesterol 57.0 Cholesterol/HDL Ratio 3.35 04/08/18 11:16 WBC RBC Hgb Hct MCV MCH MCHC RDW Plt Count MPV Neut % (Auto) Lymph % (Auto) [place] % (Auto) Eos % (Auto) Baso % (Auto) Neut # (Auto) Lymph # (Auto) [place] # (Auto) Eos # (Auto) Baso # (Auto) WBC Differential Differential Comment POC Glucose 72 Triglycerides Cholesterol LDL Cholesterol, Calc HDL Cholesterol Cholesterol/HDL Ratio - Imaging Impressions Head MRA 04/07/18 00:00 CONCLUSION: 1. Negative MRA [place] ([place]) non contrast. Head MRI 04/07/18 10:59 CONCLUSION: 1. Acute small infarct in the left basal ganglia and left posterior periventricular white matter. No mass effect or shift. No hemorrhage. Mild white matter ischemic changes. Neck MRA 04/07/18 10:59 CONCLUSION: 1. No hemodynamically significant stenosis identified on MRA of the neck. Percent stenosis is calculated using the diameter of the stenotic region over the diameter of the normal distal internal carotid artery Assessment and Plan - Assessment (1) Acute CVA (cerebrovascular accident) Code(s): I63.9 - Cerebral infarction, unspecified Status: Acute - Plan 67-year-old white right handed female baseline very independent=- history of neurofibromatosis- ff by Dr. Son as OP presenting with right sided weakness that started Thursday - Acute Left BG infarct - symptoms started Thursday- neurologically looks well - ASA OT PT daily Neurology ff . HYpertension - start on Amlodipine 2.5 mg daily HYperlipidemia - started on statins 40 mg hs Polycythemia- likely secondary to chronic smoking - smoker 1 ppday every 2 days- stop since thursday - hematology ff - work up in progress r/o PV DVT prophylaxisLovenox DC planning
[2018-04-08] MEDS: amLODIPine 5 MG Tablet PO SCH (14:40)
[2018-04-08 16:30] LABS: Hemoglobin A1c 5.5 % (4.3-6.0)
--- NOTE | 2018-04-08 20:52 | P.PNNEU ---
Subjective Subjective Comments: Pt feels right sided weakness is improving Active Medications: Active Medications Acetaminophen (Tylenol) 650 mg PO Q4H PRN PRN Reason: ARIZMENDI/fever > 100.4 Last Admin: 04/08/18 00:07 Dose: 650 mg Amitriptyline HCl (Elavil) 100 mg PO [facility] Amlodipine Besylate (Norvasc) 2.5 mg PO DAILY [facility] Last Admin: 04/08/18 14:40 Dose: 2.5 mg Aspirin (Aspirin) 325 mg PO DAILY [facility] Last Admin: 04/08/18 08:22 Dose: 325 mg Dextrose (D50w Vial) 50 ml IV.PUSH UNSCH PRN PRN Reason: PER HYPOGLYCEMIA PROTOCOL Enoxaparin Sodium (Lovenox Inj) 40 mg SQ Q24H [facility] Last Admin: 04/08/18 11:16 Dose: 40 mg Glucagon (Glucagon Inj) 1 mg OTHER UNSCH PRN PRN Reason: for Hypoglycemia Protocol Sodium Chloride (Ns Inj) 1,000 mls @ 70 mls/hr IV.CONT .[id number] [facility] Last Admin: 04/08/18 15:21 Dose: 70 mls/hr Insulin Aspart (Novolog Insulin Correctional Sugar Inj) 0 unit SQ [facility]; Protocol Last Admin: 04/08/18 20:35 Dose: Not Given Miscellaneous (Pill Splitter) 1 each [facility] Pravastatin Sodium (Pravachol) 40 mg PO [facility] Last Admin: 04/08/18 20:32 Dose: 40 mg Sodium Chloride (Ns Flush) 2 ml IV.FLUSH PRN PRN PRN Reason: FLUSH AFTER USING IV ACCESS Sodium Chloride (Ns Flush) 2 ml IV.FLUSH BID [facility] Last Admin: 04/08/18 20:35 Dose: Not Given Sodium Chloride (Ns Flush) 2 ml IV.FLUSH PRN PRN PRN Reason: FLUSH AFTER USING IV ACCESS Allergies/Adverse Reactions: Allergies Allergy/AdvReac Type Severity Reaction Status Date / Time Sulfa (Sulfonamide Allergy Severe Hives Verified 04/07/18 09:36 Antibiotics) Physical Exam Vital signs: Vital Signs 04/08/18 00:00 04/08/18 04:00 04/08/18 07:19 Temperature 98.2 F 97.8 F 97.7 F Pulse Rate 93 H 97 H 97 H Respiratory Rate 17 17 16 Blood Pressure 161/98 H 145/92 H 153/95 H Pulse Oximetry 94 L 94 L 91 L 04/08/18 11:16 04/08/18 16:00 Temperature 97.9 F 98.0 F Pulse Rate 90 92 H Respiratory Rate 16 15 Blood Pressure 149/81 H 158/98 H Pulse Oximetry 97 Intake & Output 04/08/18 04/08/18 04/09/18 06:59 18:59 06:59 Intake Total 1480 / 1480 1900 / 1900 Balance 1480 / 1480 1900 / 1900 Intake: IV 1000 / 1000 1000 / 1000 NS Inj 1,000 ML @ 70 mls/hr IV. 1000 / 1000 1000 / 1000 CONT .[id number] Rx#:[id number] Oral 480 / 480 900 / 900 Other: # Voids 2 5 Date of Last Bowel Movement 04/07/18 # Bowel Movements 1 - Routine Neurological Exam alert, speech normal'CN intact MOTOR 4+/5 RUE and RLE Objective Radiology Results: MRI --left basal ganglia cva MRA carotids---no significant stenosis ECHO no embolic source identified Laboratory Results - last 24 hr 04/07/18 04/08/18 04/08/18 23:02 05:32 05:32 WBC RBC Hgb Hct MCV MCH MCHC RDW Plt Count MPV Neut % (Auto) Lymph % (Auto) [place] % (Auto) Eos % (Auto) Baso % (Auto) Neut # (Auto) Lymph # (Auto) [place] # (Auto) Eos # (Auto) Baso # (Auto) WBC Differential Differential Comment POC Glucose 76 Hemoglobin A1c 5.5 Triglycerides 113 Cholesterol 191 LDL Cholesterol, Calc 111 H HDL Cholesterol 57.0 Cholesterol/HDL Ratio 3.35 04/08/18 04/08/18 04/08/18 05:32 07:24 11:16 WBC 5.4 RBC 4.88 Hgb 15.6 H Hct 47.1 H MCV 96.5 MCH 31.9 MCHC 33.1 RDW 13.5 Plt Count 201 MPV 8.3 Neut % (Auto) 62.2 Lymph % (Auto) 26.8 [place] % (Auto) 8.4 H Eos % (Auto) 1.2 Baso % (Auto) 1.4 Neut # (Auto) 3.4 Lymph # (Auto) 1.5 [place] # (Auto) 0.5 Eos # (Auto) 0.1 Baso # (Auto) 0.1 WBC Differential . Differential Comment Auto diff final POC Glucose 93 72 Hemoglobin A1c Triglycerides Cholesterol LDL Cholesterol, Calc HDL Cholesterol Cholesterol/HDL Ratio 04/08/18 04/08/18 16:24 20:34 WBC RBC Hgb Hct MCV MCH MCHC RDW Plt Count MPV Neut % (Auto) Lymph % (Auto) [place] % (Auto) Eos % (Auto) Baso % (Auto) Neut # (Auto) Lymph # (Auto) [place] # (Auto) Eos # (Auto) Baso # (Auto) WBC Differential Differential Comment POC Glucose 76 78 Hemoglobin A1c Triglycerides Cholesterol LDL Cholesterol, Calc HDL Cholesterol Cholesterol/HDL Ratio Review/Management - Review/Management Plan: continue asa and statin PT/OT recommend cardiology evaluation as outpatient for [facility] monitor to r /o afib.
[2018-04-08] MEDS: Amitriptyline 100 MG Tablet PO SCH (23:28)
[2018-04-09] MEDS: Insulin NovoLOG Aspart Correctional Sugar Inj SQ SCH ×4 (08:00→20:34)
[2018-04-09] MEDS: Aspirin 325 MG Tablet PO SCH (08:28)
[2018-04-09] MEDS: amLODIPine 5 MG Tablet PO SCH (08:28)
[2018-04-09] MEDS: Sod Chloride 0.9% Inj 1,000 ML IV.CONT SCH ×2 (10:10→20:31)
[2018-04-09] MEDS: Enoxaparin Inj 40 MG/0.4 ML Syringe SQ SCH (12:36)
--- NOTE | 2018-04-09 13:48 | P.PN ---
Subjective Interval history: up and ambualted with PT did very well no complains of headaches, nausea or vomitjng or weakness seen by quarryman- Hct 47- ordered for phlebotomy with repeat CBC in am Physical Exam Vital signs: Vital Signs 04/08/18 16:00 04/08/18 20:00 04/09/18 00:00 Temperature 98.0 F 98.2 F 98.1 F Pulse Rate 92 H 90 93 H Respiratory Rate 15 18 16 Blood Pressure 158/98 H 133/89 135/93 H Pulse Oximetry 97 94 L 89 L 04/09/18 04:00 04/09/18 07:12 04/09/18 10:00 Temperature 97.2 F L 97.7 F Pulse Rate 89 95 H 68 Respiratory Rate 15 16 Blood Pressure 158/95 H 161/92 H Pulse Oximetry 93 L 93 L 04/09/18 11:31 Temperature 97.9 F Pulse Rate 100 H Respiratory Rate 17 Blood Pressure 113/77 Pulse Oximetry Intake & Output 04/08/18 04/09/18 04/09/18 18:59 06:59 18:59 Intake Total 1900 / 1900 1240 / 1240 Balance 1900 / 1900 1240 / 1240 Weight 36.2 kg Intake: IV 1000 / 1000 1000 / 1000 NS Inj 1,000 ML @ 70 mls/hr IV. 1000 / 1000 1000 / 1000 CONT .[id number] Rx#:[id number] Oral 900 / 900 240 / 240 Other: # Voids 5 3 Date of Last Bowel Movement 04/07/18 04/07/18 # Bowel Movements 1 Narrative: in no acute distress SKIN: Warm and dry. Multiple elevated papules from neurofibromatosis bilateral arm trunk chest and upper lower extremities HEAD: Atraumatic. Normocephalic. EYES: Pupils equal and round. No scleral icterus. No injection or drainage. ENT: No nasal bleeding or discharge. Mucous membranes pink and moist. NECK: Trachea midline. No JVD. CARDIOVASCULAR: Regular rate and rhythm. RESPIRATORY: No accessory muscle use. Clear to auscultation. Breath sounds equal bilaterally. GASTROINTESTINAL: Abdomen soft, non-tender, nondistended. Hepatic and splenic margins not palpable. Normoactive bowel sounds MUSCULOSKELETAL: Extremities without clubbing, cyanosis, or edema. NEUROLOGICAL: Awake and alert. No obvious cranial nerve deficits. Motor grossly within normal limits. Five out of 5 muscle strength left \ Appropriate mood and affect; insight and judgment normal. very interactive Results - Labs CBC & Chem 7: 04/08/18 05:32 04/07/18 09:35 Laboratory Results - last 24 hr 04/08/18 04/08/18 04/08/18 05:32 16:24 20:34 POC Glucose 76 78 Hemoglobin A1c 5.5 04/09/18 12:38 POC Glucose 112 H Hemoglobin A1c Assessment and Plan - Assessment (1) Acute CVA (cerebrovascular accident) Code(s): I63.9 - Cerebral infarction, unspecified Status: Acute - Plan 67-year-old white right handed female baseline very independent=- history of neurofibromatosis- ff by Dr. Son as OP presenting with right sided weakness that started Thursday - Acute Left BG infarct - symptoms started Thursday- neurologically looks well - ASA OT PT daily Neurology ff . HYpertension - started on Amlodipine 2.5 mg daily HYperlipidemia - started on statins 40 mg hs Polycythemia- - evaluated by hematology- ordered for phelbotomy today 500 cc. CBC in am - smoker 1 ppday every 2 days- stop since thursday - hematology ff - work up in progress r/o PV DVT prophylaxisLovenox DC planning CM consult for home health care visits- nursing/PT
--- NOTE | 2018-04-09 13:49 | P.DCO ---
- Diagnosis (1) Acute CVA (cerebrovascular accident) Status: Acute - Physical Therapy Order: Evaluate and treat, Improve ambulation - Occupational Therapy Order: Evaluate and treat - Speech Therapy Order: To improve: Speech and communication skills - Home Health Nursing Order: Medical education, Signs/symptoms of disease process, Nursing assessment with vital signs - Case Management Consult Case Management Consult-Home Health: Yes - Certification I have seen patient Mehnaz Justin on 04/09/18. My clinical findings support the need for the requested home health care services because: Need for psychosocial assistance, High risk of falls I certify that my clinical findings support that this patient is homebound because: Need for psychosocial assistance
[2018-04-09 18:02] VITALS: RESP 18
--- NOTE | 2018-04-09 19:36 | P.PNNEU ---
Subjective Subjective Comments: Pt reports strength back to normal. Active Medications: Active Medications Acetaminophen (Tylenol) 650 mg PO Q4H PRN PRN Reason: ARIZMENDI/fever > 100.4 Last Admin: 04/08/18 00:07 Dose: 650 mg Amitriptyline HCl (Elavil) 100 mg PO [facility] Last Admin: 04/08/18 23:28 Dose: 100 mg Amlodipine Besylate (Norvasc) 2.5 mg PO DAILY [facility] Last Admin: 04/09/18 08:28 Dose: 2.5 mg Aspirin (Aspirin) 325 mg PO DAILY [facility] Last Admin: 04/09/18 08:28 Dose: 325 mg Dextrose (D50w Vial) 50 ml IV.PUSH UNSCH PRN PRN Reason: PER HYPOGLYCEMIA PROTOCOL Enoxaparin Sodium (Lovenox Inj) 40 mg SQ Q24H [facility] Last Admin: 04/09/18 12:36 Dose: 40 mg Glucagon (Glucagon Inj) 1 mg OTHER UNSCH PRN PRN Reason: for Hypoglycemia Protocol Sodium Chloride (Ns Inj) 1,000 mls @ 70 mls/hr IV.CONT .[id number] [facility] Last Admin: 04/09/18 10:10 Dose: 70 mls/hr Insulin Aspart (Novolog Insulin Correctional Sugar Inj) 0 unit SQ [facility]; Protocol Last Admin: 04/09/18 17:33 Dose: Not Given Miscellaneous (Pill Splitter) 1 each OTHER UNSCH [facility] Pravastatin Sodium (Pravachol) 40 mg PO [facility] Last Admin: 04/08/18 20:32 Dose: 40 mg Sodium Chloride (Ns Flush) 2 ml IV.FLUSH PRN PRN PRN Reason: FLUSH AFTER USING IV ACCESS Sodium Chloride (Ns Flush) 2 ml IV.FLUSH BID [facility] Last Admin: 04/09/18 12:36 Dose: Not Given Sodium Chloride (Ns Flush) 2 ml IV.FLUSH PRN PRN PRN Reason: FLUSH AFTER USING IV ACCESS Allergies/Adverse Reactions: Allergies Allergy/AdvReac Type Severity Reaction Status Date / Time Sulfa (Sulfonamide Allergy Severe Hives Verified 04/07/18 09:36 Antibiotics) Physical Exam Vital signs: Vital Signs 04/08/18 20:00 04/09/18 00:00 04/09/18 04:00 Temperature 98.2 F 98.1 F 97.2 F L Pulse Rate 90 93 H 89 Respiratory Rate 18 16 15 Blood Pressure 133/89 135/93 H 158/95 H Pulse Oximetry 94 L 89 L 93 L 04/09/18 07:12 04/09/18 10:00 04/09/18 11:31 Temperature 97.7 F 97.9 F Pulse Rate 95 H 68 100 H Respiratory Rate 16 17 Blood Pressure 161/92 H 113/77 Pulse Oximetry 93 L 04/09/18 16:00 Temperature 97.5 F L Pulse Rate 100 H Respiratory Rate 18 Blood Pressure 131/79 Pulse Oximetry 97 Intake & Output 04/09/18 04/09/18 04/10/18 06:59 18:59 06:59 Intake Total 1240 / 1240 540 / 540 Balance 1240 / 1240 540 / 540 Weight 36.2 kg 38.63 kg Intake: IV 1000 / 1000 NS Inj 1,000 ML @ 70 mls/hr IV. 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 ok from neurology standpoint to discharge tomorrow. Follow up with me as outpatient in 3 weeks
[2018-04-09] MEDS: Amitriptyline 100 MG Tablet PO SCH (20:31)
[2018-04-10 04:40] LABS: Baso # (Auto) 0.1 th/mm3 (0.0-0.2); Baso % (Auto) 1.2 % (0.0-2.0); Eos # (Auto) 0.1 th/mm3 (0.0-0.4); Eos % (Auto) 1.5 % (0.0-4.0); Hematocrit 38.6 % (35.0-46.0); Hemoglobin 13.3 gm/dL (11.6-15.3); Lymph # (Auto) 1.6 th/mm3 (1.0-4.8); Lymph % (Auto) 29.3 % (9.0-44.0); Mean Corpuscular HGB Conc 34.4 % (32.0-36.0); Mean Corpuscular Hemoglobin 32.5 pg (27.0-34.0); Mean Corpuscular Volume 94.4 fL (80.0-100.0); Mean Platelet Volume 7.6 fL (7.0-11.0); Mono # (Auto) 0.5 th/mm3 (0.0-0.9); Mono % (Auto) 8.6 % (0.0-8.0); Neut # (Auto) 3.3 th/mm3 (1.8-7.7); Neut % (Auto) 59.4 % (16.0-70.0); Platelet Count 173 th/mm3 (150-450); Red Blood Count 4.09 mil/mm3 (4.00-5.30); Red Cell Distribution Width 13.3 % (11.6-17.2); White Blood Count 5.6 th/mm3 (4.0-11.0)
[2018-04-10 08:56] VITALS: BP 134/64; PULSE 99; TEMP 98; O2SAT 94
[2018-04-10] MEDS: Aspirin 325 MG Tablet PO SCH (09:11)
[2018-04-10] MEDS: amLODIPine 5 MG Tablet PO SCH (09:11)
[2018-04-10] MEDS: Sod Chloride 0.9% Inj 1,000 ML IV.CONT SCH ×2 (09:12→12:09)
[2018-04-10] MEDS: Insulin NovoLOG Aspart Correctional Sugar Inj SQ SCH ×2 (09:12→12:10)
--- NOTE | 2018-04-10 10:09 | P.PN ---
Subjective Interval history: feels great no complains d/w her - OP ff up smoking cessation- very motivated- "wake up call"- showed me pictures of her grandkids "I will do it for them" and "for myself" Physical Exam Vital signs: Vital Signs 04/09/18 11:31 04/09/18 16:00 04/09/18 20:00 Temperature 97.9 F 97.5 F L 98.1 F Pulse Rate 100 H 100 H 92 H Respiratory Rate 18 18 Blood Pressure 113/77 131/79 136/86 Pulse Oximetry 97 94 L 04/10/18 00:00 04/10/18 04:00 04/10/18 04:23 Temperature 97.2 F L 97.4 F L Pulse Rate 87 84 82 Respiratory Rate 18 18 Blood Pressure 141/81 H 143/77 H Pulse Oximetry 97 93 L 04/10/18 08:00 Temperature 98 F Pulse Rate 99 H Respiratory Rate 18 Blood Pressure 134/64 Pulse Oximetry 94 L Intake & Output 04/09/18 04/10/18 04/10/18 18:59 06:59 18:59 Intake Total 540 / 540 1240 / 1240 1000 / 1000 Balance 540 / 540 1240 / 1240 1000 / 1000 Weight 38.63 kg 37.3 kg Intake: IV 1000 / 1000 1000 / 1000 NS Inj 1,000 ML @ 70 mls/hr IV. 1000 / 1000 1000 / 1000 CONT .[id number] [facility] Rx#:[id number] Oral 540 / 540 240 / 240 Other: # Voids 4 2 Date of Last Bowel Movement 04/07/18 # Bowel Movements 1 Weight On Admission 38.555 kg Narrative: in no acute distress SKIN: Warm and dry. Multiple elevated papules from neurofibromatosis bilateral arm trunk chest and upper lower extremities HEAD: Atraumatic. Normocephalic. EYES: Pupils equal and round. No scleral icterus. No injection or drainage. ENT: No nasal bleeding or discharge. Mucous membranes pink and moist. NECK: Trachea midline. No JVD. CARDIOVASCULAR: Regular rate and rhythm. RESPIRATORY: No accessory muscle use. Clear to auscultation. Breath sounds equal bilaterally. GASTROINTESTINAL: Abdomen soft, non-tender, nondistended. Hepatic and splenic margins not palpable. Normoactive bowel sounds MUSCULOSKELETAL: Extremities without clubbing, cyanosis, or edema. NEUROLOGICAL: Awake and alert. No obvious cranial nerve deficits. Motor grossly within normal limits. Five out of 5 muscle strength left \\ Appropriate mood and affect; insight and judgment normal. very interactive Results - Labs CBC & Chem 7: 04/10/18 04:26 04/07/18 09:35 Laboratory Results - last 24 hr 04/09/18 04/09/18 04/09/18 12:38 16:37 20:34 WBC RBC Hgb Hct MCV MCH MCHC RDW Plt Count MPV Neut % (Auto) Lymph % (Auto) [place] % (Auto) Eos % (Auto) Baso % (Auto) Neut # (Auto) Lymph # (Auto) [place] # (Auto) Eos # (Auto) Baso # (Auto) WBC Differential Differential Comment POC Glucose 112 H 85 101 04/10/18 04/10/18 04:26 08:07 WBC 5.6 RBC 4.09 Hgb 13.3 D Hct 38.6 MCV 94.4 MCH 32.5 MCHC 34.4 RDW 13.3 Plt Count 173 MPV 7.6 Neut % (Auto) 59.4 Lymph % (Auto) 29.3 [place] % (Auto) 8.6 H Eos % (Auto) 1.5 Baso % (Auto) 1.2 Neut # (Auto) 3.3 Lymph # (Auto) 1.6 [place] # (Auto) 0.5 Eos # (Auto) 0.1 Baso # (Auto) 0.1 WBC Differential . Differential Comment Auto diff final POC Glucose 82 Assessment and Plan - Plan 67-year-old white right handed female baseline very independent=- history of neurofibromatosis- ff by Dr. Son as OP presenting with right sided weakness that started Thursday - Acute Left BG infarct- neuro stable - symptoms started Thursday- neurologically looks well - ASA OT PT daily Neurology ff . HYpertension - started on Amlodipine 2.5 mg daily HYperlipidemia - started on statins 40 mg hs Polycythemia- S/P Phlebotomy 04/09- Hct down to 38 - evaluated by hematology- ordered for phelbotomy today 500 cc. - smoker 1 ppday every 2 days- stop since thursday - hematology ff - work up in progress r/o PV- special labs pending - DC today - with OP ff up with Dr. Cardona- patient to call for appt DVT prophylaxisLovenox DC planning CM consult for home health care visits- nursing/PT
--- NOTE | 2018-04-10 10:19 | P.DS ---
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 Patient states that she was at [facility] about 3 days ago and noted suddenly her right lower leg gave out on her she was able to recover and ambulate back home which then she noted that her guidance services coordinator strength and was diminished and was unable to hold a pen. She denies any headaches nor any visual changes nor any difficulty with swallowing. She was still able to ambulate independently however feels a heaviness in the right lower leg to the past 3 days. Based on the fact that the symptoms did not improve she came to emergency room today for evaluation. She denies a history of hypertension or diabetes. She has not had any associated chest pain, shortness of breath nor any nausea or vomiting. Patient update on day of discharge: awake and alet no complains d/w her ff up DS: Medications - Discharge Medications Prescriptions: amlodipine [Norvasc] 2.5 mg PO DAILY 90 Days #45 tab aspirin 325 mg PO DAILY 90 Days #90 tab pravastatin 40 mg PO HS #90 tab DS: Summary Hospital Course: 67-year-old white right handed female baseline very independent=- history of neurofibromatosis- ff by Dr. Son as OP presenting with right sided weakness that started Thursday - Acute Left BG infarct- neuro stable - no deficits - symptoms started Thursday- neurologically looks well - ASA OT PT daily Neurology ff . HYpertension - started on Amlodipine 2.5 mg daily HYperlipidemia - started on statins 40 mg hs Polycythemia- S/P Phlebotomy 04/09- Hct down to 38 - evaluated by hematology- ordered for phelbotomy today 500 cc. - smoker 1 ppday every 2 days- stop since thursday - hematology ff - work up in progress r/o PV- special labs pending - DC today - with OP ff up with Dr. Cardona- patient to call for appt DC today CM consult for home health care visits- nursing/PT - Time Spent with Patient Total time spent providing and/or coordinating discharge services: Less than 30 minutes - Quality: VTE Deep Vein Thrombosis/Pulmonary Embolism Present on Admission: No Exam Vital signs: Vital Signs 04/09/18 11:31 04/09/18 16:00 04/09/18 20:00 Temperature 97.9 F 97.5 F L 98.1 F Pulse Rate 100 H 100 H 92 H Respiratory Rate 17 18 18 Blood Pressure 113/77 131/79 136/86 Pulse Oximetry 97 94 L 04/10/18 00:00 04/10/18 04:00 04/10/18 04:23 Temperature 97.2 F L 97.4 F L Pulse Rate 87 84 82 Respiratory Rate 18 18 Blood Pressure 141/81 H 143/77 H Pulse Oximetry 97 93 L 04/10/18 08:00 Temperature 98 F Pulse Rate 99 H Respiratory Rate 18 Blood Pressure 134/64 Pulse Oximetry 94 L Intake & Output 04/09/18 04/10/18 04/10/18 18:59 06:59 18:59 Intake Total 540 / 540 1240 / 1240 1000 / 1000 Balance 540 / 540 1240 / 1240 1000 / 1000 Weight 38.63 kg 37.3 kg Intake: IV 1000 / 1000 1000 / 1000 NS Inj 1,000 ML @ 70 mls/hr IV. 1000 / 1000 1000 / 1000 CONT .[id number] [facility] Rx#:[id number] Oral 540 / 540 240 / 240 Other: # Voids 4 2 Date of Last Bowel Movement 04/07/18 # Bowel Movements 1 Weight On Admission 38.555 kg Results Procedures completed during hospitalization: phlebotomy Labs on day of discharge: Labs from last 24 hours 04/10/18 04/10/18 04/09/18 08:07 04:26 20:34 WBC 5.6 RBC 4.09 Hgb 13.3 D Hct 38.6 MCV 94.4 MCH 32.5 MCHC 34.4 RDW 13.3 Plt Count 173 MPV 7.6 Neut % (Auto) 59.4 Lymph % (Auto) 29.3 [place] % (Auto) 8.6 H Eos % (Auto) 1.5 Baso % (Auto) 1.2 Neut # (Auto) 3.3 Lymph # (Auto) 1.6 [place] # (Auto) 0.5 Eos # (Auto) 0.1 Baso # (Auto) 0.1 WBC Differential . Differential Comment Auto diff final POC Glucose 82 101 Erythropoietin 04/09/18 04/09/18 04/09/18 16:37 13:15 12:38 WBC RBC Hgb Hct MCV MCH MCHC RDW Plt Count MPV Neut % (Auto) Lymph % (Auto) [place] % (Auto) Eos % (Auto) Baso % (Auto) Neut # (Auto) Lymph # (Auto) [place] # (Auto) Eos # (Auto) Baso # (Auto) WBC Differential Differential Comment POC Glucose 85 112 H Erythropoietin Pending - Impressions ITS Impressions Head MRA 04/07/18 00:00 CONCLUSION: 1. Negative MRA [facility] ([place] [facility]) non contrast. Chest X-Ray 04/07/18 09:37 CONCLUSION: Minimal parental changes right base new from comparison study Head CT 04/07/18 09:37 CONCLUSION: 1. Probable subacute infarct basal ganglia left side 2. MRI suggested. 3. Findings were discussed with Dr. Sahni on today's date . Head MRI 04/07/18 10:59 CONCLUSION: 1. Acute small infarct in the left basal ganglia and left posterior periventricular white matter. No mass effect or shift. No hemorrhage. Mild white matter ischemic changes. Neck MRA 04/07/18 10:59 CONCLUSION: 1. No hemodynamically significant stenosis identified on MRA of the neck. Percent stenosis is calculated using the diameter of the stenotic region over the diameter of the normal distal internal carotid artery Discharge Plan - Discharge Disposition Patient Disposition: 06 Disch W/Home Health Service - Discharge Condition Condition: Stable - Discharge Order Discharge Orders: Discharge Order (Routine); Ordered 04/10/18 Ordered By: Peter Sánchez - Discharge Details Anticipated Discharge Date: 04/10/18 - Physicians Team Primary Care Provider: John Sahu Attending Provider: Peter Sánchez Other Providers: Romero Son MD, PhD ; Lakeisha Rudolph MD ; Sidney Henry MD
--- NOTE | 2018-04-10 11:52 | P.PNONC ---
Subjective Interval history: Afebrile Patient reports she never had the phlebotomy Ready to go home Thankful that her strength came back in her right arm Objective Vital Signs/Intake & Output: Vital Signs 04/09/18 16:00 04/09/18 20:00 04/10/18 00:00 Temperature 97.5 F L 98.1 F 97.2 F L Pulse Rate 100 H 92 H 87 Respiratory Rate 18 18 18 Blood Pressure 131/79 136/86 141/81 H Pulse Oximetry 97 94 L 97 04/10/18 04:00 04/10/18 04:23 04/10/18 08:00 Temperature 97.4 F L 98 F Pulse Rate 84 82 99 H Respiratory Rate 18 18 Blood Pressure 143/77 H 134/64 Pulse Oximetry 93 L 94 L Intake & Output 04/09/18 04/10/18 04/10/18 18:59 06:59 18:59 Intake Total 540 / 540 1240 / 1240 1000 / 1000 Balance 540 / 540 1240 / 1240 1000 / 1000 Weight 85 lb 2.633 oz 82 lb 3.719 oz Intake: IV 1000 / 1000 1000 / 1000 NS Inj 1,000 ML @ 70 mls/hr IV. 1000 / 1000 1000 / 1000 CONT .[id number] [facility] Rx#:[id number] Oral 540 / 540 240 / 240 Other: # Voids 4 2 Date of Last Bowel Movement 04/07/18 # Bowel Movements 1 Weight On Admission 85 lb Result Diagrams: 04/10/18 04:26 04/07/18 09:35 Laboratory Results: Laboratory Results - last 24 hr 04/09/18 04/09/18 04/09/18 12:38 16:37 20:34 WBC RBC Hgb Hct MCV MCH MCHC RDW Plt Count MPV Neut % (Auto) Lymph % (Auto) [place] % (Auto) Eos % (Auto) Baso % (Auto) Neut # (Auto) Lymph # (Auto) [place] # (Auto) Eos # (Auto) Baso # (Auto) WBC Differential Differential Comment POC Glucose 112 H 85 101 04/10/18 04/10/18 04:26 08:07 WBC 5.6 RBC 4.09 Hgb 13.3 D Hct 38.6 MCV 94.4 MCH 32.5 MCHC 34.4 RDW 13.3 Plt Count 173 MPV 7.6 Neut % (Auto) 59.4 Lymph % (Auto) 29.3 [place] % (Auto) 8.6 H Eos % (Auto) 1.5 Baso % (Auto) 1.2 Neut # (Auto) 3.3 Lymph # (Auto) 1.6 [place] # (Auto) 0.5 Eos # (Auto) 0.1 Baso # (Auto) 0.1 WBC Differential . Differential Comment Auto diff final POC Glucose 82 Medications: Active Medications Generic Name Dose Route Start Last Admin Trade Name Freq PRN Reason Stop Dose Admin Acetaminophen 650 mg 04/07/18 23:41 04/08/18 00:07 Tylenol PO 650 mg Q4H PRN Administration ARIZMENDI/fever > 100.4 Amitriptyline HCl 100 mg 04/08/18 21:00 04/09/18 20:31 Elavil PO 100 mg HS [facility] Administration Amlodipine Besylate 2.5 mg 04/08/18 14:15 04/10/18 09:11 Norvasc PO 2.5 mg DAILY [facility] Administration Aspirin 325 mg 04/08/18 09:00 04/10/18 09:11 Aspirin PO 325 mg DAILY [facility] Administration Enoxaparin Sodium 40 mg 04/07/18 11:00 04/09/18 12:36 Lovenox Inj SQ 40 mg Q24H [facility] Administration Sodium Chloride 1,000 mls @ 70 mls/hr 04/07/18 11:00 04/10/18 09:12 Ns Inj IV.CONT 70 mls/hr .[id number] [facility] Administration Insulin Aspart 0 unit 04/07/18 12:00 04/10/18 09:12 Novolog Insulin Correctional Sugar Inj SQ Not Given ACHS [facility] Protocol Pravastatin Sodium 40 mg 04/07/18 21:00 04/09/18 20:31 Pravachol PO 40 mg HS [facility] Administration Sodium Chloride 2 ml 04/07/18 21:00 04/10/18 09:12 Ns Flush IV.FLUSH Not Given BID [facility] Objective Remarks: GENERAL: Older female sitting up in bed watching TV in no acute distress SKIN: Warm and dry. Multiple neurofibromatosis nodules scattered to body HEAD: Normocephalic. EYES: No scleral icterus. No injection or drainage. NECK: Supple, trachea midline. No JVD or lymphadenopathy. CARDIOVASCULAR: Regular rate and rhythm without murmurs. RESPIRATORY: Breath sounds equal bilaterally. No accessory muscle use. GASTROINTESTINAL: Abdomen soft, non-tender, nondistended. EXTREMITIES: No cyanosis, or edema. MUSCULOSKELETAL: Adequate muscle tone. NEUROLOGICAL: No obvious focal deficit. Awake, alert, and oriented x3. Assessment/Plan - Plan 67-year-old female with history of neurofibromatosis found to have an acute small infarct in the left basal ganglia and left posterior ventricular white matter. Hematology consulted for erythrocytosis 1. Patient hemoglobin and hematocrit decreased from 16.5/49.9 on admission to 13.3/38.6. She denies having had a phlebotomy. Her Hemanth 2 and MPL studies are pending. 2. The patient appears to have recovered from her stroke. She has discharge order in place and will follow up with her neurologist for discharge. She will also call our clinic to follow-up with Dr. Henry to discuss results of myeloproliferative testing. 3. Clear for discharge from hematology standpoint - Attending Statement The exam, history, and the medical decision-making described in the above note were completed with the assistance of the mid-level provider. I reviewed and agree with the findings presented. I attest that I had a [id number] encounter with the patient on the same day, and personally performed and documented my assessment and findings in the medical record. 67 yoF admitted with CVA. Erythrocytosis on admission, resolved. Close follow in oncology clinic for results of testing.
[2018-04-10] MEDS: Enoxaparin Inj 40 MG/0.4 ML Syringe SQ SCH (12:17)
[2018-04-10 23:51] LABS: Erythropoietin 8.9 mIU/mL (2.6-18.5)
--- NOTE | 2018-04-11 16:41 | HM ---
Date Performed: 04/09/2018 Time Performed: 15:45:00 HOOKUP DATE: 04/09/18 03:45:00 PM Fri ANALYSIS START TIME: 04/09/2018 3:50:00 PM ANALYSIS END TIME: 04/10/2018 12:43:44 PM PATIENT AGE: 67 PATIENT HEIGHT: 61 PATIENT WEIGHT: 79 DRUG LIST: ROOM 1708 PATIENT DIAGNOSIS: CVA TEST NARRATIVE: The patient's average heart rate was 88 BPM. Heart rates greater than 120 B PM were noted 1% of the time. No episodes of bradycardia were noted. No pauses exceeding 2.0 sec onds were noted. 7 ventricular ectopics, which represented < 1% of the total beat count, were not ed. The highest ventricular ectopic frequency occurred from 06:00 PM to 07:00 PM Fri. During this t ilan 2 VE(s) occurred. Ventricular ectopics were observed as 7 isolated beat(s) only. No couplets or runs were noted. 228 supraventricular ectopics, which represented < 1% of the total beat count, were noted. The highest supraventricular ectopic frequency occurred from 11:00 AM to 12:00 PM Sat. During this time 108 SVE(s) occurred. No episodes of ST depression (defined as -1.0 mm or more) w ere noted in channel 1. No episodes of ST depression (defined as -1.0 mm or more) were noted in mcdonald felecia 2. No episodes of ST depression (defined as -1.0 mm or more) were noted in channel 3. NO DIARY W GIVEN TO PATIENT TEST INTERPRETATION: I agree with narrative There are some sinus arrhythmia seen. No complex arr hythmia are seen and very little ventricular ectopy is present and no complex forms. No significant pauses occured. No diary was provided. Overall, this patient has minimum amount of ventricular ectop y and occasional to minimal atrial ectopy but no comnplex arrhythmias present Signed by : Saeed Mcnally
== END 2018-04-10 14:16 | disposition home health service (06) | DRG 65 ==
LOC: NEPE 09:05 → NEDA 10:59 → N07 13:10
PROVIDERS: ADMIT Internal Medicine; ATTEND Internal Medicine
CPT/HCPCS: 70450; 70544; 70548; 70551; 71010; 71045; 80053; 80061; 81001; 81270; 81402; 82550; 82668; 82948; 82962; 83036; 84484; 85025; 85610; 85730; 93005; 93225; 93306; 97110; 97116; 97161; 97167; 97530; 99285; A9585; J1650; J7030